=== PATIENT | male | born 1960 | race Caucasian/White ===

== ENCOUNTER 2019-05-05 07:33 | Day surgery (SDC) | payer OTHER ==
[2019-05-05 08:15] VITALS: BMI 26.6
[2019-05-05 09:23] VITALS: TEMP 98.2
[2019-05-05 09:44] VITALS: PULSE 68
[2019-05-05 09:45] VITALS: BP 130/76
== END 2019-05-05 09:45 | disposition home or self-care (01) ==
LOC: JASU-ENDO 07:33
PROVIDERS: ATTEND Internal Medicine Gastroenterology
PROC: 0DJD8ZZ Inspection of Lower Intestinal Tract, Via Natural or Artificial Opening Endoscopic (ICD-10-PCS; principal; 2019-05-05 08:30)
DX: Z12.11 Encounter for screening for malignant neoplasm of colon (principal)